=== PATIENT | female | born 1960 ===

== ENCOUNTER 2021-05-02 09:41 | Day surgery (SDC) | payer OTHER | END 2021-05-02 13:30 | disposition home or self-care (01) | LOC: AMB-ENDOS 09:41 → CIR.AMB 13:45 | PROVIDERS: ATTEND Colon & Rectal Surgery | DX: K57.32 Diverticulitis of large intestine without perforation or abscess without bleeding (principal); K64.0 First degree hemorrhoids; Z20.822 Contact with and (suspected) exposure to COVID-19 ==